=== PATIENT | male | born 1950 | race Caucasian/White ===

== ENCOUNTER 2023-08-25 13:24 | Emergency (ER) | payer MEDICARE, BC, SELFPAY ==
[2023-08-25 13:32] VITALS: BP 133/94
[2023-08-25 13:55] LABS: % Basophils 0.3 % (0-2); % Eosinophils 1.5 % (0-6); % Immature Granulocytes 0.3 % (0-0.5); % Lymphocytes 29.3 % (20.5-51.1); % Monocytes 8.1 % (1.7-9.3); % Neutrophils 60.5 % (42.2-75.2); Absolute Eosinophils 0.2 10^3/uL (0-0.7); Absolute Lymphocytes 2.9 10^3/uL (1.2-3.4); Absolute Monocytes 0.8 10^3/uL (0.1-0.6); Hematocrit 45.5 % (39.0-52.0); Hemoglobin 14.5 g/dL (13.0-18.0); Mean Corp Hgb Conc. 31.9 g/dL (33.0-37.0); Mean Corpuscular Hgb 27.4 pg (27.0-31.0); Mean Platelet Volume 10.2 fL (7.4-10.4); Nucleated Red Blood Cells % 0 % (-); Platelet Count 306 10^3/uL (130-400); Red Blood Cell Count 5.29 10^6/uL (4.70-6.10); Red Cell Dist. Width 15.7 % (11.5-14.5)
[2023-08-25 14:03] LABS: COVID-19 Antigen Negative (Negative)
[2023-08-25 14:11] LABS: Blood Urea Nitrogen 15 mg/dl (9-20); Carbon Dioxide 28 mmol/L (22-30); Chloride 99 mmol/L (98-107); Glucose 71 mg/dl (70-99); Sodium 136 mmol/L (135-145); eGFR > 60.00
--- NOTE | 2023-08-25 16:20 | ED.GENMED ---
History of Present Illness
General
Chief Complaint: Cough
Time Seen by Provider: 08/25/23 15:43
Travel History
Have you had any contact with someone who has COVID-19?: No
Do you have any symptoms of coronavirus? Fever > 100 degrees, chills, cough, shortness of breath, sore throat, loss of taste or smell, muscle aches, or headache?: Yes
Symptoms:: cough
History of Present Illness
History of Present Illness:
I did not evaluate the patient. He eloped prior to my evaluation after provider assignment
Past History
Past History
ED Past Medical History: Arrthythmia (atrial fibrillation), HTN, Other (Kidney stones, thyroid nodule) and Other (Sleep apnea, degenerative joint disease, heart murmur, frequent headaches, small sized subarachnoid hemorrhage after minor head trauma
05/2021); Negative Hypercholesterolemia or IDDM
ED Past Surgical History: Cardiac (pacemaker 2020), Cholecystectomy, Orthopedic (cervical spine fusion, lumbar spine fusion) and Other (Gastric bypass); Negative Appendectomy
Social History
Tobacco: Non-smoker
Alcohol: Occasional
Drug: None
Personal:
Living: with family
Employment: Retired
Family History
Family History: Hypertension
Phy Exam
Physical Exam
Physical Exam:
n/a
Course
Orders/Labs/Results
Orders:
Orders
08/25/23 13:42
Basic Metabolic Panel Urgent
COVID-19 Antigen Urgent
Source: Nasal Swab
Complete Blood Count/With Diff Urgent
INF RAPID [Influenza A+B Rapid Molecular] Urgent
LJ Source: Nasal Swab
Specimen Description:
Abnormal Lab Results
08/25/23
13:42
MCHC 31.9 L g/dL
(33.0-37.0)
RDW 15.7 H %
(11.5-14.5)
Absolute Monos (auto) 0.8 H 10^3/uL
(0.1-0.6)
Creatinine 0.5 L mg/dL
(0.7-1.3)
08/25/23 13:42
08/25/23 13:42
Vital Signs
Initial and Last Documented VS:
Initial Vital Signs
Temp Pulse Resp BP Pulse Ox
97.5 F 84 16 133/94 98
08/25/23 13:32 08/25/23 13:32 08/25/23 13:32 08/25/23 13:32 08/25/23 13:32
Last Documented Vital Signs
Temp Pulse Resp BP Pulse Ox
97.5 F 84 16 133/94 98
08/25/23 13:32 08/25/23 13:32 08/25/23 13:32 08/25/23 13:32 08/25/23 13:32
*Critical Care Note
Total Time (30-74mins, 75-104mins- exclusive of procedures): Not Applicable
ED Attending Note
-
Portions of this chart may have been created with voice recognition software.� Occasional wrong word or��sound alike� substitutions may have occurred due to the inherent limitations of voice recognition software.
Discharge Plan
Departure
Patient Disposition: Elopement
Date of Disposition: 08/25/23
Time of Disposition: 16:55
Prescriptions:
No Action
primidone 250 MG tablet
250 mg PO QID
rosuvastatin [Crestor] 40 MG tablet
40 mg PO DAILY
venlafaxine [Effexor XR] 75 MG capsule,extended release 24hr
75 mg PO DAILY
multivitamin with folic acid [Tab-A-Jose Antonio] 1 TABLET tablet
1 tab PO DAILY
Chanca-Johnna Tab
1 tab PO DAILY
acetaminophen 325 MG tablet
500 mg PO Q4HPRN PRN (Reason: mild pain/JAIEMS/temp> 100.4F)
hydrocortisone 1 APPLIC cream
1 applic topical BID
fluticasone propion-salmeterol [Advair Diskus] 1 EACH blister with device
1 ea IH BID
trazodone 100 MG tablet
100 mg PO HS Qty: 0 0RF
Rx Instructions:
Only resume after of Levaquin
fludrocortisone 0.1 MG tablet
0.1 mg PO DAILY
L.acidoph, paracasei,B. lactis 1 EACH capsule
1 ea PO DAILY
B6/Folic/B12/Coffee/Phosphatid [Neuriva Plus Brain Perform Cap] 1 EACH Capsule
1 ea PO DAILY
azelastine 137 MCG/0.137 ML aerosol,spray
137 mcg NS BID
Saccharomyces boulardii 250 MG capsule
250 mg PO BID
amiodarone [Pacerone] 200 MG tablet
200 mg PO DAILY Qty: 30 0RF
Referrals:
UNKNOWN - PT DOES,NOT KNOW [Unknown Provider] -
Interventions
Interventions:
*Risk Screen - Suicide Last Done: 08/25/23 16:15
*Neglect/Abuse Screening Last Done: 08/25/23 16:15
ED- Fall Risk Assessment Last Done: 08/25/23 16:15
*ED COVID-19 Vaccine History Last Done: 08/25/23 13:32
*Nursing Disposition Last Done: 08/25/23 16:56
ED- Pulmonary Assessment Last Done: 08/25/23 16:15
Discharge Date and Time
Discharge Date/Time: 08/25/23 16:57
== END 2023-08-25 16:57 | disposition left against medical advice (07) ==
LOC: EMR 13:24
PROVIDERS: Emergency Medicine; EMERGENCY PHYSICIAN Emergency Medicine; FAMILY PHYSICIAN Family Medicine
DX: R05.9 Cough, unspecified (principal); I48.91 Unspecified atrial fibrillation; I10 Essential (primary) hypertension; G47.30 Sleep apnea, unspecified; R01.1 Cardiac murmur, unspecified; Z82.49 Family history of ischemic heart disease and other diseases of the circulatory system; Z87.442 Personal history of urinary calculi; Z90.49 Acquired absence of other specified parts of digestive tract; Z95.0 Presence of cardiac pacemaker; Z98.1 Arthrodesis status; Z98.84 Bariatric surgery status
CPT/HCPCS: 99283; 80048; 85025; 87502; 87811